=== PATIENT | male | born 1985 | race African-American/Black ===

== ENCOUNTER 2019-06-02 10:42 | Emergency (ER) | payer OTHER ==
[~2019-06-02] VITALS: Ht 182.9 cm; Wt 84.0 kg
[2019-06-02] MEDS ORDERED: DEXAMETHASONE 10 MG/ML VIAL IM ONE (11:30)
[2019-06-02] MEDS ORDERED: DIAZEPAM 5 MG TABLET PO ONE (11:30)
[2019-06-02] MEDS ORDERED: KETOROLAC 30MG/ML VIAL IM ONE (11:30)
[2019-06-02 13:06] VITALS: BP 110/79
== END 2019-06-02 13:09 | disposition home or self-care (01) ==
LOC: ER 10:42
DX: M54.5 Low back pain (principal); F12.10 Cannabis abuse, uncomplicated; X50.0XXA Overexertion from strenuous movement or load, initial encounter; Y93.89 Activity, other specified; Y92.018 Other place in single-family (private) house as the place of occurrence of the external cause
CPT/HCPCS: 72110; 96372; 99283; A4217; J1100; J1885

== ENCOUNTER 2023-07-25 13:20 | Emergency (ER) | payer OTHER ==
[~2023-07-25] VITALS: Ht 180.3 cm; Wt 97.0 kg
[2023-07-25 13:32] VITALS: BP 116/74; PULSE 61; RESP 18; TEMP 98.4; O2SAT 97
[2023-07-25 16:06] LABS: BASOPHILS % 0.9 % (0.0-2.0); EOSINOPHILS % 3.3 % (0.0-5.0); HEMATOCRIT. 42.9 % (42.0-52.0); HEMOGLOBIN. 13.8 g/dL (14.0-18.0); MEAN CORPUSCULAR HEMOGLOBIN 28.4 pg (28.0-32.0); MEAN CORPUSCULAR HGB CONC 32.1 g/dL (31.0-37.0); MEAN CORPUSCULAR VOLUME 88.4 fL (80.0-94.0); MONOCYTES % 6.9 % (2.0-8.0); NEUTROPHILS % 67.9 % (40.0-76.0); PLATELET 158 x1000/uL (130-400); RED BLOOD CELL COUNT 4.85 mill/uL (4.7-6.1); RED CELL DISTRIBUTION WIDTH 15.1 % (11.6-14.6); WHITE BLOOD COUNT 4.3 x1000/uL (4.5-11.0)
[2023-07-25 16:10] LABS: CHLORIDE 110 mEq/L (98-107); INDEX HEMOLYSI 1 (1-3); INDEX ICTERIC 1 (1-4); INDEX LIPEMIC 1 (1-3); POTASSIUM 3.7 mEq/L (3.5-5.1); SODIUM 136 mEq/L (136-145)
[2023-07-25 16:17] LABS: ALANINE AMINOTRANSFERASE 15 IU/L (13-61); ALBUMIN 3.7 g/dL (3.4-5.0); ASPARTATE AMINOTRANSFERASE 12 IU/L (15-37); BILIRUBIN TOTAL 0.4 mg/dL (0.1-1.0); CALCIUM 7.8 mg/dL (8.5-10.1); CARBON DIOXIDE 26 mEq/L (21-32); CREATININE 1.1 mg/dL (0.6-1.3); GLUCOSE 87 mg/dL (70-105); PROTEIN TOTAL 7.4 g/dL (6.0-8.3); UREA NITROGEN BLOOD 9 mg/dL (7-21)
[2023-07-25] MEDS ORDERED: CEFP200T13 MT (17:35)
[2023-07-25 17:55] LABS: CLARITY URINE CLEAR (CLEAR); COLOR URINE YELLOW (YELLOW); GLUCOSE URINE NEGATIVE (NEGATIVE); KETONES URINE NEGATIVE (NEGATIVE); LEUKOCYTE ESTERASE URINE NEGATIVE (NEGATIVE); NITRITE URINE NEGATIVE (NEGATIVE); OCCULT BLOOD URINE NEGATIVE (NEGATIVE); PROTEIN URINE NEGATIVE (NEGATIVE); SPECIFIC GRAVITY URINE 1.024 (1.005-1.030)
== END 2023-07-25 18:34 | disposition home or self-care (01) ==
LOC: ER 14:28
DX: R10.9 Unspecified abdominal pain (principal); N30.90 Cystitis, unspecified without hematuria; K52.9 Noninfective gastroenteritis and colitis, unspecified
CPT/HCPCS: 36415; 74176; 80053; 81003; 85025; 99284

== ENCOUNTER 2025-07-04 09:51 | Emergency (ER) | payer OTHER ==
[~2025-07-04] VITALS: Ht 180.3 cm; Wt 99.0 kg
[~2025-07-04 09:51] MED LIST: ERGO1250 PO; ONDA4TAB50 MT; PROT20 MT
[2025-07-04 10:02] VITALS: O2SAT 97
[2025-07-04] MEDS ORDERED: KETOROLAC 15MG/ML VIAL IM ONE (10:30)
[2025-07-04] MEDS: LIDOCAINE 5% PATCH TOP SCH (10:42)
[2025-07-04] MEDS: KETOROLAC 15MG/ML VIAL IM NR (10:42)
[2025-07-04 12:34] LABS: CLARITY URINE CLEAR (CLEAR); COLOR URINE YELLOW (YELLOW); GLUCOSE URINE NEGATIVE (NEGATIVE); KETONES URINE NEGATIVE (NEGATIVE); LEUKOCYTE ESTERASE URINE NEGATIVE (NEGATIVE); NITRITE URINE NEGATIVE (NEGATIVE); OCCULT BLOOD URINE NEGATIVE (NEGATIVE); PH URINE 6.5 (4.5-8.0); PROTEIN URINE NEGATIVE (NEGATIVE); SPECIFIC GRAVITY URINE 1.019 (1.005-1.030); UROBILINOGEN URINE 0.2 E.U./dL (0.2-1.0)
[2025-07-04] MEDS ORDERED: LIDO700A30 TP (13:05)
[2025-07-04] MEDS ORDERED: IBUP-2028 MT (13:05)
[2025-07-04 13:17] VITALS: BP 129/80; PULSE 67; RESP 18; TEMP 36.6; O2SAT 100
== END 2025-07-04 13:18 | disposition home or self-care (01) ==
LOC: ER 09:51
DX: M54.50 Low back pain, unspecified (principal); Z79.899 Other long term (current) drug therapy
CPT/HCPCS: 81003; 74176; 96372; 99285; J1885; Z7610